=== PATIENT | female | born 1960 | race Two or more races ===

== ENCOUNTER 2021-05-18 13:14 | Inpatient (IN) | payer OTHER ==
[~2021-05-18] VITALS: Ht 157.5 cm; Wt 78.0 kg
[2021-05-18] MEDS ORDERED: ZESTRIL5 MG (13:50)
[2021-06-07] MEDS ORDERED: LIPITOR20 MG PO (12:56)
[2021-06-07] MEDS ORDERED: WARFARIN SODIUM4 MG PO (12:56)
[2021-06-07] MEDS ORDERED: METOPROLOL TART50 MG PO (12:57)
[2021-06-07] MEDS ORDERED: LANOXIN125 MCG PO (12:57)
[2021-06-07] MEDS ORDERED: FUROSEMIDE20 MG PO (12:57)
== END 2021-06-07 17:39 | disposition home or self-care (01) | DRG 310 ==
LOC: ER 13:14 → MEDJ 05-19 10:29 → SEC-K 05-19 10:29 → MEDJ 05-19 16:05
PROVIDERS: ADMIT Internal Medicine; ATTEND Internal Medicine
PROC: 4A12X4Z Monitoring of Cardiac Electrical Activity, External Approach (ICD-10-PCS; principal; 2021-05-20)
DX: I48.0 Paroxysmal atrial fibrillation (principal); E86.0 Dehydration; Z79.01 Long term (current) use of anticoagulants; I05.0 Rheumatic mitral stenosis; Z20.822 Contact with and (suspected) exposure to COVID-19